=== PATIENT | male | born 1950 | race Caucasian/White ===

== ENCOUNTER 2023-12-06 05:52 | Day surgery (SDC) | payer MEDICARE ==
[2023-12-05 09:46] VITALS: BMI 24.3
[2023-12-06] MEDS ORDERED: Dexamethasone 20 MG/5 ML VIAL ONE (07:47)
[2023-12-06] MEDS ORDERED: PROPOFOL 40 ML ONE (07:47)
[2023-12-06] MEDS ORDERED: Lidocaine 1% PF 5 ML VIAL ONE (07:47)
[2023-12-06] MEDS ORDERED: EPINEPHrine 1 MG/ML VIAL ONE (07:50)
[2023-12-06] MEDS ORDERED: fentaNYL 50 mcg/mL 1 mL Vial ONE (07:58)
[2023-12-06] MEDS ORDERED: PROPOFOL 20 ML ONE (08:18)
[2023-12-06] MEDS ORDERED: Hydrocodone-Acetamin 15 ML UDCUP ONE (09:29)
== END 2023-12-06 10:25 | disposition home or self-care (01) ==
LOC: CSHSDC 05:52
PROVIDERS: ATTEND Otolaryngology Otolaryngic Allergy
PROC: 3E0F83Z Introduction of Anti-inflammatory into Respiratory Tract, Via Natural or Artificial Opening Endoscopic (ICD-10-PCS; principal; 2023-12-06)
DX: J38.01 Paralysis of vocal cords and larynx, unilateral (principal); J35.01 Chronic tonsillitis; C34.90 Malignant neoplasm of unspecified part of unspecified bronchus or lung; T17.908A Unspecified foreign body in respiratory tract, part unspecified causing other injury, initial encounter; I12.9 Hypertensive chronic kidney disease with stage 1 through stage 4 chronic kidney disease, or unspecified chronic kidney disease; N18.6 End stage renal disease; D63.1 Anemia in chronic kidney disease; G47.30 Sleep apnea, unspecified; F17.200 Nicotine dependence, unspecified, uncomplicated; I73.9 Peripheral vascular disease, unspecified; I35.0 Nonrheumatic aortic (valve) stenosis; Z87.891 Personal history of nicotine dependence; Z79.899 Other long term (current) drug therapy
CPT/HCPCS: 31571; J0171; J1100; J2704; J3010; L8607

== ENCOUNTER 2023-12-12 15:15 | Outpatient (CLI) | payer MEDICARE | END 2023-12-12 15:16 | disposition home or self-care (01) | LOC: CSHRAD 15:15 | PROVIDERS: ATTEND Student in an Organized Health Care Education/Training Program | DX: C34.31 Malignant neoplasm of lower lobe, right bronchus or lung (principal); Z98.890 Other specified postprocedural states; R91.8 Other nonspecific abnormal finding of lung field | CPT/HCPCS: 71046 ==